=== PATIENT | male | born 1950 | race Two or more races ===

== ENCOUNTER 2025-04-26 08:40 | Inpatient (IN) | payer MEDICARE, MEDICAID ==
[~2025-04-26] VITALS: Ht 198.1 cm; Wt 90.9 kg
--- NOTE | 2025-04-26 08:58 | ED.PDOC ---
Altered Mental Status HPI Comments 74 y.o male with PMHx of ESRD (dialysis M, W,F) and CHF, presents to the ED via EMS s/p witnessed syncopal episode today at home. EMS reports patient woke up with a fever today and as he was getting out of the bed via assistance of family member, had a syncopal lasting 2 minutes. Negative head injuries reported. Rick rodriguez reports feeling weak upon ED arrival and states he is unable to recall syncopal event. He denies any nausea, vomiting, diarrhea, chills, chest pain or SOB. EMS mentions patient is on 2 liters of oxygen at home and missed dialysis today given syncopal episode today. IV fluids in place by EMS as well. Time Seen by MD: 08:50 Reviewed Notes: Nurses Notes, Ocean Biologist Notes, Medications, Allergies Information Source: Patient, Emergency Med Personnel Mode of Arrival: EMS Severity: Moderate Timing: Hours Duration: Since onset Prehospital treatment: IVF, Oxygen Quality: Decreased Alertness Recent: Fever History of: None Associated Signs and Symptoms: None Past Medical History PAST MEDICAL HISTORY: CHF, CKF, ESRD Surgical History (Other): right toe amputation Family History Family History: Reviewed,noncontributory to illness Social History Smoker: Non-Smoker Alcohol: Denies ETOH Use Drugs: Denies Drug Use Lives In: Home Constitutional: reports: fever, malaise, weakness; denies: chills, diaphoresis, fatigue, sweats, others EENTM: denies: blurred vision, double vision, ear bleeding, ear discharge, ear drainage, ear pain, ear ringing, eye pain, eye redness, hearing loss, mouth pain, mouth swelling, nasal discharge, nose bleeding, nose congestion, nose pain, photophobia, tearing, throat pain, throat swelling, voice changes, others Respiratory: denies: cough, hemoptysis, orthopnea, SOB at rest, shortness of breath, SOB with excertion, stridor, wheezing, others Cardiovascular: reports: syncope; denies: chest pain, dizzy spells, diaph oresis, Dyspnea on exertion, edema, irregular heart beat, left arm pain, lightheadedness, palpitations, PND, others Gastrointestinal: denies: abdomen distended, abdominal pain, blood streaked bowels, constipated, diarrhea, dysphagia, difficulty swallowing, hematemesis, melena, nausea, poor appetite, poor fluid intake, rectal bleeding, rectal pain, vomiting, others Genitourinary: denies: burning, dysuria, flank pain, frequency, hematuria, incontinence, penile discharge, penile sore, pain, testicle pain, testicle swelling, urgency, others Neurological: denies: dizziness, fainting, headache, left sided numbness, left sided weakness, numbness, paresthesia, pre-existing deficit, right sided numbnes s, right sided weakness, seizure, speech problems, tingling, tremors, weakness, others Musculoskeletal: denies: back pain, gout, joint pain, joint swelling, muscle pain, muscle stiffness, neck pain, others Integumetry: denies: bruises, change in color, change in hair/nails, dryness, laceration, lesions, lumps, rash, wounds, others Allergic/Immunocompromised: denies: Difficulty Healing, Frequent Infections, Hives, Itching, others Hematologic/Lymphatic: denies: anemia, blood clots, easy bleeding, easy bruising, swollen glands, others Endocrine: denies: excessive hunger, excessive sweating, excessive thirst, excessive urination, flushing, intolerance to cold, intolerance to heat, unexplained weight gain, unexplained weight loss, others Psychiatric: denies: anxiety, bipolar disorder, depression, hopeless, panic disorder, schizophrenia, sleepless, suicidal, others All Other Systems: Reviewed and Negative Physical Exam General Appearance: Moderate Distress, Thin HEENT: Normal ENT Inspection, Pharynx Normal, TMs Normal Neck: Full Range of Motion, Non-Tender, Normal, Normal Inspection Respiratory: Chest Non-Tender, Lungs Clear, No Accessory Muscle Use, No Respiratory Distress, Normal Breath Sounds Cardiovascular: No Edema, No JVD, No Murmur, No Gallop, Normal Peripheral Pulses, Regular Rate/Rhythm Breast Exam: Deferred Gastrointestinal: No Organomegaly, Non Tender, No Pulsatile Mass, Normal Bowel Sounds, Soft Genitalia: Deferred Pelvic: Deferred Rectal: Deferred Extremities: No calf tenderness, Normal capillary refill, Normal inspection, Normal range of motion, Non-tender, No pedal edema Musculoskeletal : Apperance: Normal Neurologic: Alert, college hire II-XII nml as Tested, No Motor Deficits, Normal Affect, Normal Mood, No Sensory Deficits Cerebellar Function: NOT DONE Reflexes: NOT DONE Skin: Wounds (Right great toe amputation) Peripheral Pulses: 3+ Radial (R), 3+ Radial (L) Lymphatic: No Adenopathy EKG EKG : Pulse Rate (adult): 120 Cardiac Rhythm: ST Was a procedure done? Was a procedure done?: No Differential Diagnosis (ALOC) Differential Diagnosis: Dehydration, Hypoxemia, Heart Failure, Renal Failure X-Ray, Labs, Meds, VS Vital Signs Date Time Temp Pulse Resp B/P (MAP) Pulse Ox O2 Delivery O2 Flow Rate FiO2 04/26/25 09:05 120 04/26/25 09:02 120 04/26/25 08:45 99.7 112 19 88/41 96 99.7 Lab Test 04/26/25 13:16 04/26/25 11:55 04/26/25 10:34 04/26/25 09:30 Range/Units Troponin I High Sensitivity 59 *H 45 45 </=54 ng/L Lactic Acid Level 1.2 2.6 *H 0.4-2.0 mmol/L White Blood Count 15.0 H 4.4-10.8 10^3/uL Red Blood Count 3.21 L 4.5-5.90 10^6/uL Hemoglobin 9.1 L 13.5-17.5 g/dL Hematocrit 29.9 L 41.0-53.0 % Mean Corpuscular Volume 93.1 80.0-100.0 fL Mean Corpuscular Hemoglobin 28.5 28.0-32.0 pg Mean Corpuscular Hemoglobin Concent 30.6 L 32.0-36.0 g/dL Red Cell Distribution Width 16.9 H 11.8-14.3 % Platelet Count 270 140-450 10^3/uL Mean Platelet Volume 8.9 6.9-10.8 fL Neutrophils (%) (Auto) 89.5 H 37.0-80.0 % Lymphocytes (%) (Auto) 4.5 L 10.0-50.0 % Monocytes (%) (Auto) 5.1 0.0-12.0 % Eosinophils (%) (Auto) 0.7 0.0-7.0 % Basophils (%) (Auto) 0.2 0.0-2.0 % Neutrophils # (Auto) 13.4 H 1.6-8.6 10 ^3/uL Lymphocytes # (Auto) 0.7 0.4-5.4 10 ^3/uL Monocytes # (Auto) 0.8 0-1.3 10 ^3/uL Eosinophils # (Auto) 0.1 0-0.8 10 ^3/uL Basophils # (Auto) 0 0-0.2 10 ^3/uL Nucleated Red Blood Cells 0.1 % Sodium Level 145 136-145 mmol/L Potassium Level 3.1 L 3.5-5.1 mmol/L Chloride Level 99 98-107 mmol/L Carbon Dioxide Level 30 20-31 mmol/L Anion Gap 16 H 5-15 Blood Urea Nitrogen 40 H 9-23 mg/dL Creatinine 6.69 H 0.700-1.30 mg/dL Glomerular Filtration Rate Calc 8 >90 mL/min BUN/Creatinine Ratio 6.0 L 10.0-20.0 Serum Glucose 111 H 74-106 mg/dL Calcium Level 7.9 L 8.7-10.4 mg/dL Total Bilirubin 0.2 0.2-1.0 mg/dL Aspartate Amino Transferase (AST) 18 13-40 U/L Alanine Aminotransferase (ALT) < 9 7-40 U/L Alkaline Phosphatase 79 46-116 U/L Total Protein 5.4 L 5.7-8.2 g/dL Albumin 3.2 3.2-4.8 g/dL Current Medications Medications (Trade) Dose Ordered Sig/Jace Route Start Time Stop Time Status Last Admin Piperacillin Sod/ Tazobactam Sod 100 ml @ 100 mls/hr ONCE ONCE IV 04/26/25 09:15 04/26/25 10:14 DC 04/26/25 10:54 Vancomycin HCl 250 ml @ 250 mls/hr ONCE ONCE IV 04/26/25 09:30 04/26/25 10:29 DC 04/26/25 10:43 Sodium Chloride 1,000 ml @ 1,000 mls/hr Q1H ONCE IV 04/26/25 09:30 04/26/25 10:29 DC 04/26/25 09:43 Patient alert. Generalized weakness. Has old amputation of the right great toe. Vitals stable. Possibly peripheral vascular disease. He does get dialysis. Nephrology consultation. Have to hold the fluids because of his dialysis. Possible sepsis. Explained to the patient. Continue monitoring. X-Ray, Labs, Meds, VS Comment [address] [address] Ph: [phone] DIAGNOSTIC IMAGING Diagnostic Imaging Report : [id number] Signed PATIENT: ABIEL DARDEN ACCT: [id number] UNIT: [id number] : 1950 LOC: ER ROOM / BED: / AGE / SEX: 74 / M ADM STATUS: REG ER SERVICE 2 ORDERING PHYSICIAN: REMI GUDINO MD PROCEDURE(s): CXRP - CHEST PORTABLE REASON: sob ORDER NUMBER(s): [id number], ACCESSION NUMBER(s): [id number] EXAM: XY CHEST PORTABLE HISTORY: sob COMPARISON: None TECHNIQUE: Portable upright AP view of the chest was performed. FINDINGS: There are interstitial opacities in the left mid to lower lung and right lung base. No pneumothorax or consolidative infiltrates. The heart is enlarged. Left chest AICD is present. The aortic arch is calcific. The central pulmonary arteries may be ectatic. IMPRESSION: 1. Interstitial opacities in the left mid to lower lung and right lung base may be due to scarring, pneumonia, or asymmetric pulmonary edema. Comparison with previous chest imaging would be helpful to make this distinction. 2. Cardiomegaly and atherosclerotic vascular disease. 3. Possible pulmonary arterial hypertension. ATED BY: ABIEL RODRIGUEZ MD DICTATED DATE/TIME: 04/26/25936 SIGNED BY: ABIEL RODRIGUEZ MD SIGNED DATE/TIME: 04/26/25936 CC: Time of 1ST Reevaluation: 08:53 Reevaluation 1ST: Unchanged Patient Education/Counseling: Diagnosis, Treatment, Prognosis Family Education/Counseling: No Family Present SEPSIS Sepsis Screen Physician Orders Chest Portable (04/26/25 08:53) Urinalysis (04/26/25 08:53) Blood Culture (04/26/25 08:53) *Dr. Garcia [facility] (04/26/25 08:53) Vital Signs Date Time Temp Pulse Resp B/P (MAP) Pulse Ox O2 Delivery O2 Flow Rate FiO2 04/26/25 09:05 120 04/26/25 09:02 120 04/26/25 08:45 99.7 112 19 88/41 96 99.7 Laboratory Tests Test 04/26/25 09:30 04/26/25 11:55 Lactic Acid Level 2.6 mmol/L (0.4-2.0) *H 1.2 mmol/L (0.4-2.0) White Blood Count 15.0 10^3/uL (4.4-10.8) H Medications Medications Dose Ordered Sig/Jace Route Start Time Stop Time Status Last Admin Dose Admin Piperacillin Sod/ Tazobactam Sod 100 ml @ 100 mls/hr ONCE ONCE IV 04/26/25 09:15 04/26/25 10:14 DC 04/26/25 10:54 Sodium Chloride 1,000 ml @ 1,000 mls/hr Q1H ONCE IV 04/26/25 09:30 04/26/25 10:29 DC 04/26/25 09:43 Vancomycin HCl 250 ml @ 250 mls/hr ONCE ONCE IV 04/26/25 09:30 04/26/25 10:29 DC 04/26/25 10:43 Departure 1 Departure Time of Disposition: 09:00 Impression: Primary Impression: Chronic kidney disease on chronic dialysis Disposition: ADMITTED INPATIENT Admit to: Med Surg Condition: Guarded Critical Care Note Critical Care Time?: No Stability Stability form required: No Heart Score Heart Score: Heart Score Response (Comments) Value History N/A 0 EKG N/A 0 Age N/A 0 Risk Factors N/A 0 Troponin N/A 0 Total 0 I personally scribed for REMI GUDINO MD ([email or web address]) on 04/26/25 at 08:58. Electronically submitted by Leann Gustafson ([facility]). I personally scribed for REMI GUDINO MD ([email or web address]) on 04/26/25 at 15:44. Electronically submitted by Leann Gustafson ([facility]). REMI GUDINO MD Apr 26, 2025 08:58
[2025-04-26 09:40] VITALS: PULSE 123; RESP 15; O2SAT 97
--- NOTE | 2025-04-26 09:40 | DVH ---
EXAM: XY CHEST PORTABLE HISTORY: sob COMPARISON: None TECHNIQUE: Portable upright AP view of the chest was performed. FINDINGS: There are interstitial opacities in the left mid to lower lung and right lung base. No pneumothorax o r consolidative infiltrates. The heart is enlarged. Left chest AICD is present. The aortic arch is c alcific. The central pulmonary arteries may be ectatic. IMPRESSION: 1. Interstitial opacities in the left mid to lower lung and right lung base may be due to scarring, p neumonia, or asymmetric pulmonary edema. Comparison with previous chest imaging would be helpful to m sergio this distinction. 2. Cardiomegaly and atherosclerotic vascular disease. 3. Possible pulmonary arterial hypertension.
[2025-04-26] MEDS: SODIUM CHLORIDE 0.9% 1,000 ML IV ONE (09:43)
[2025-04-26 09:47] LABS: Hematocrit 29.9 % (41.0-53.0); Hemoglobin 9.1 g/dL (13.5-17.5); Mean Corpuscular Hemoglobin 28.5 pg (28.0-32.0); Mean Corpuscular Volume 93.1 fL (80.0-100.0); Nucleated Red Blood Cells % 0.1 %
[2025-04-26 10:05] LABS: Alkaline Phosphatase 79 U/L (46-116); Anion Gap 16 (5-15); BUN/Creatinine Ratio 6.0 (10.0-20.0); Carbon Dioxide 30 mmol/L (20-31); Chloride 99 mmol/L (98-107)
[2025-04-26 10:17] LABS: Alanine Aminotransferase < 9 U/L (7-40); Albumin 3.2 g/dL (3.2-4.8); Bilirubin, Total 0.2 mg/dL (0.2-1.0); Blood Urea Nitrogen 40 mg/dL (9-23); Calcium 7.9 mg/dL (8.7-10.4); Glucose 111 mg/dL (74-106); Potassium 3.1 mmol/L (3.5-5.1); Sodium 145 mmol/L (136-145); Total Protein 5.4 g/dL (5.7-8.2)
[2025-04-26 10:22] LABS: Lactic Acid w/Reflex 2.6 mmol/L (0.4-2.0)
[2025-04-26] MEDS: VANCOMYCIN 1GM/250ML KIT 250 ML IV ONE ×2 (10:43→21:30)
--- NOTE | 2025-04-26 10:43 | ECG ---
[facility] Test Date: 2025-04-26 Test Time: 09:02:31 Pat Name: ABIEL DARDEN Department: [facility] ED Room: [address] [place] [address] Gender: M Rehabilitation Therapist: beverley : 1950 Requested By: REMI GUDINO Order Number: [id number] Reading MD: Garland Interiano Measurements Intervals Tutor Key Rate: 120 P: -21 MI: 148 QRS: -15 QRSD: 109 T: -1 QT: 344 QTc: 486 Interpretive Statements Sinus tachycardia Ventricular premature complex Inferior infarct, old Electronically Signed On 04-27-2025 18:48:02 PDT by Garland Interiano Please click the below link to view image of tracing.
[2025-04-26] MEDS: PIPERACILLIN-TAZOB 3.375GM 100 ML IV ONE (10:54)
[2025-04-26 13:05] VITALS: PULSE 93; O2SAT 98
--- NOTE | 2025-04-26 16:38 | DVHHPRES ---
History of Present Illness Resident Creating Document: ALEKSEY BONE RESIDENT History of Present Illness Patient is a 74-year-old male with a past medical history of COPD s/p bilateral lung transplant, ESRD on dialysis Tuesday, heart failure with a reduced ejection fraction, stroke with a vascular dementia, peripheral artery disease, osteomyelitis, basal cell carcinoma on the face status post resection, hypothyroidism presented to the ED with a chief generalized weakness. Patient reported that yesterday night he started to feel shivers, had fever up to 101 degree F and in the morning was not able to get out of the bed following which was brought to the ER for further evaluation. Patient underwent amputation of the right 1st toe due to osteomyelitis at [facility] about a week ago and earlier this week he underwent a coronary angiogram on the left lower extremity as he also has gangrene of the left 1st great toe. Patient reported to feeling increased shortness of breath while he was on his home oxygen of 2 L/min. On arrival to the ER patient was hypotensive, had elevated lactic acid, with the increased white count and left shift following which sepsis protocol was initiated. Past medical history: As per HPI Past surgical history: Bilateral lung transplant, peripheral angiogram, right upper extremity AV fistula, right 1st toe amputation Social history: Patient had history of smoking previously, currently denies smoking, alcohol, drug use Home medications: Levothyroxine 175 mcg, sertraline 100 mg, sevelamer 2.4 g t.i.d. WM, Bactrim single strength Tuesday, trazodone 50 HS, tacrolimus 1 mg b.i.d., prednisolone 10 mg daily, Milrinone 15 mg on the day of dialysis MWF, calcitriol 1 mcg daily, aspirin 80 mg daily, atorvastatin 40 mg daily, mirtazapine 7.5 mg HS, Creon 31263 units Review of Systems Review of Systems Patient seen and examined with the bedside Reports to be feeling weak and has intermittent chills, denies any cough, chest pain, phlegm Patient reports pain in his right foot as well as the left foot No abdominal pain, constipation or diarrhea Denies any shortness of breath Allergies: Coded Allergies: Hydromorphone (Verified Adverse Reaction, Unknown, 04/26/25) Exam Vital Signs Vital Signs Date Time Temp Pulse Resp B/P (MAP) Pulse Ox O2 Delivery O2 Flow Rate FiO2 04/26/25 13:00 93 21 89/44 (59) 98 04/26/25 12:00 98.8 98.8 04/26/25 09:40 Nasal Cannula* 2 28 Exam Gen - mild conjunctival pallor, no icterus, no cyanosis, no extremity edema . Skin - Patients skin is warm and dry. HEENT - normocephalic, atraumatic, moist mucous membranes. Neck - full ROM, no LAD, no JVD Pulmonary - B/L equal breath sounds, minimal crackles on the left lower, no wheezing, no stridor. cardiovascular - regular S1,S2 heard, no added sounds, no murmurs heard. peripheral pulses normal radial 2+, diminished pedal pulses bilaterally GI - soft, nontender abdomen. no hepatospleenomegaly. Bowel sounds normoactive Neurological - Patient is A/O X 3 . Bilateral upper extremity strength 5/5, bilateral lower extremity strength 5/5, no facial droop, normal speech, no tremor, no sensory deficiets. Labs/Xrays Labs Test 04/26/25 13:16 04/26/25 11:55 04/26/25 09:30 Range/Units Troponin I High Sensitivity 59 *H </=54 ng/L Lactic Acid Level 1.2 0.4-2.0 mmol/L White Blood Count 15.0 H 4.4-10.8 10^3/uL Red Blood Count 3.21 L 4.5-5.90 10^6/uL Hemoglobin 9.1 L 13.5-17.5 g/dL Hematocrit 29.9 L 41.0-53.0 % Mean Corpuscular Volume 93.1 80.0-100.0 fL Mean Corpuscular Hemoglobin 28.5 28.0-32.0 pg Mean Corpuscular Hemoglobin Concent 30.6 L 32.0-36.0 g/dL Red Cell Distribution Width 16.9 H 11.8-14.3 % Platelet Count 270 140-450 10^3/uL Mean Platelet Volume 8.9 6.9-10.8 fL Neutrophils (%) (Auto) 89.5 H 37.0-80.0 % Lymphocytes (%) (Auto) 4.5 L 10.0-50.0 % Monocytes (%) (Auto) 5.1 0.0-12.0 % Eosinophils (%) (Auto) 0.7 0.0-7.0 % Basophils (%) (Auto) 0.2 0.0-2.0 % Neutrophils # (Auto) 13.4 H 1.6-8.6 10 ^3/uL Lymphocytes # (Auto) 0.7 0.4-5.4 10 ^3/uL Monocytes # (Auto) 0.8 0-1.3 10 ^3/uL Eosinophils # (Auto) 0.1 0-0.8 10 ^3/uL Basophils # (Auto) 0 0-0.2 10 ^3/uL Nucleated Red Blood Cells 0.1 % Sodium Level 145 136-145 mmol/L Potassium Level 3.1 L 3.5-5.1 mmol/L Chloride Level 99 98-107 mmol/L Carbon Dioxide Level 30 20-31 mmol/L Anion Gap 16 H 5-15 Blood Urea Nitrogen 40 H 9-23 mg/dL Creatinine 6.69 H 0.700-1.30 mg/dL Glomerular Filtration Rate Calc 8 >90 mL/min BUN/Creatinine Ratio 6.0 L 10.0-20.0 Serum Glucose 111 H 74-106 mg/dL Calcium Level 7.9 L 8.7-10.4 mg/dL Total Bilirubin 0.2 0.2-1.0 mg/dL Aspartate Amino Transferase (AST) 18 13-40 U/L Alanine Aminotransferase (ALT) < 9 7-40 U/L Alkaline Phosphatase 79 46-116 U/L Total Protein 5.4 L 5.7-8.2 g/dL Albumin 3.2 3.2-4.8 g/dL SEPSIS Sepsis Screen Date sepsis recognized/suspect: Apr 26, 2025 Time Sepsis recognized/suspect: 939 Recent Procedure: Yes On Antibiotic Therapy: Yes Respiratory Rate >20: No Heart Rate >90: Yes Temp<36 C (96.8 F) or >38.3 C: No SBP <90 or MAP <65 mmHG: Yes New Acute Mental Status Change: No Is the patient on CPAP, BIPAP,: No Physician Orders Chest Portable (04/26/25 08:53) Urinalysis (04/26/25 08:53) Blood Culture (04/26/25 08:53) *Dr. Garcia [facility] (04/26/25 08:53) Vital Signs Date Time Temp Pulse Resp B/P (MAP) Pulse Ox O2 Delivery O2 Flow Rate FiO2 04/26/25 13:00 93 21 89/44 (59) 98 04/26/25 12:30 97 22 90/46 (61) 99 04/26/25 12:00 98.8 100 19 89/44 (59) 98 98.8 04/26/25 11:30 100 20 95/46 (62) 99 04/26/25 11:00 105 21 96/48 (64) 99 04/26/25 10:30 106 22 94/44 (61) 99 04/26/25 10:00 116 15 97/47 (64) 97 04/26/25 09:40 123 15 97 Nasal Cannula* 2 28 04/26/25 09:40 98.4 123 15 90/45 (60) 97 98.4 04/26/25 09:05 120 04/26/25 09:02 120 04/26/25 08:45 99.7 112 19 88/41 96 99.7 Laboratory Tests Test 04/26/25 09:30 04/26/25 11:55 Lactic Acid Level 2.6 mmol/L (0.4-2.0) *H 1.2 mmol/L (0.4-2.0) White Blood Count 15.0 10^3/uL (4.4-10.8) H Medications Medications Dose Ordered Sig/Jace Route Start Time Stop Time Status Last Admin Dose Admin Piperacillin Sod/ Tazobactam Sod 100 ml @ 100 mls/hr ONCE ONCE IV 04/26/25 09:15 04/26/25 10:14 DC 04/26/25 10:54 100 MLS/HR Sodium Chloride 1,000 ml @ 1,000 mls/hr Q1H ONCE IV 04/26/25 09:30 04/26/25 10:29 DC 04/26/25 09:43 1,000 MLS/HR Vancomycin HCl 250 ml @ 250 mls/hr ONCE ONCE IV 04/26/25 09:30 04/26/25 10:29 DC 04/26/25 10:43 250 MLS/HR Assessment/Plan Assessment/Plan Acute on chronic hypoxic respiratory failure S/p bilateral lung transplant in 2018 Pulmonary vascular congestion Possible pneumonia likely due to Gram +/- bacteria Mild bilateral pulmonary edema - on oxygen via nasal cannula - IV antibiotics vancomycin and ceftriaxone - tacrolimus and prednisolone - Bactrim single strength Tuesday - COVID influenza and MRSA screen pending Acute on chronic heart failure with reduced ejection fraction Status post biventricular AICD Peripheral artery disease s/p recent peripheral angiogram - ECG showed sinus tachycardia, ventricular premature complex, no acute ST segment or T-wave changes - on warfarin ( scheduled dosed by Coumadin clinic at [facility]) - aspirin and atorvastatin Sepsis likely due to right foot osteomyelitis - patient recently had right 1st toe amputation at [facility] about a week ago - wound draining pus - right and left foot CT - podiatry consulted - wound cultures pending - IV antibiotics vancomycin and ceftriaxone - blood cultures pending - judicious use of IV fluids since the patient is end-stage renal disease on dialysis and congestive heart failure End-stage renal disease on dialysis MWF - consulted nephrology - monitor electrolytes - on sevelamer - calcitriol History of hypothyroidism - continued on levothyroxine 175 mcg daily - TSH is low, free T4 and total T3 pending - may need decrease in dosage History of mood disorder - continued on sertraline PUD prophylaxis: Protonix DVT prophylaxis: Heparin Goals of care discussed with the patient, daughter and at bedside for over 27 minutes. Full code Time spent: 47 minutes Plan discussed with Dr. Pereira Plan discussed with: Patient, Spouse, Other (RN) Date of Service: Apr 26, 2025 Billing Provider: FRANCESCA PEREIRA MD Common Visit Codes: 02152-[id number] INP/OBS CARE (HIGH) Secondary Visit Codes: [id number] CARE PLAN 30 MINUTES ALEKSEY BONE RESIDENT Apr 26, 2025 16:38 FRANCESCA PEREIRA MD Apr 29, 2025 02:20
[2025-04-26] MEDS ORDERED: NITROGLYCERIN 0.4 MG SL TAB SL PRN (16:45)
[2025-04-26] MEDS ORDERED: MORPHINE SULFATE INJ 2 MG/ml SYRG IV PRN (16:45)
[2025-04-26] MEDS ORDERED: VANCOMYCIN PER PHARMACY 0 MG IV SCH (16:45)
[2025-04-26] MEDS ORDERED: ONDANSETRON HCL 4 MG/2 ML VIAL IV PRN (16:45)
[2025-04-26 18:31] LABS: INR 2.68 (0.9-1.15); Partial Thromboplastin Time 48.7 SEC (24.5-34.5); Prothrombin Time 25.8 sec (9.3-11.8)
[2025-04-26] MEDS: SEVELAMER 800 MG TAB PO SCH (19:11)
[2025-04-26] MEDS: POTASSIUM CHL 20 Meq TABLET PO ONE (19:11)
[2025-04-26] MEDS: PANTOPRAZOLE 40 MG/10 ML VIAL INJ IV ONE (19:12)
[2025-04-26] MEDS: SODIUM CHLORIDE 0.9% 500 ML IV ONE ×2 (19:12→21:20)
[2025-04-26] MEDS: SULFAMETHOX W/TRIMETH(800/160MG) DS TAB PO ONE (19:17)
--- NOTE | 2025-04-26 20:54 | DVH ---
EXAMINATION: CT CT R FOOT WO CONTRAST INDICATION: s/p 1st toe amputation, septic COMPARISON: CT CT L FOOT WO CONTRAST on DOS: 04/26/25 TECHNIQUE: CT of the rightleft foot was performed without contrast. Volume transverse images were obt ained reconstructed in multiple planes using bone and soft tissue algorithms. Radiation dose: CTDIvol 25.04 mGy, DLP 959.0 (mGy-cm) FINDINGS: Bones are diffusely demineralized. Prior amputation of the 1st toe. Erosive changes at the tip of the 1st metatarsal distally. Suspected few additional erosions at the p lantar base of the 2nd metatarsal. No fracture or malalignment. Diffuse vascular calcifications. IMPRESSION: Erosive changes at the tip of the 1st metatarsal with diffuse suspected erosions at the 2nd metatars al head concerning for osteomyelitis. MRI would more definitively assess.
--- NOTE | 2025-04-26 20:58 | DVH ---
EXAMINATION: CT CT L FOOT WO CONTRAST INDICATION: left 1st toe gangrene COMPARISON: CT CT R FOOT WO CONTRAST on DOS: 04/26/25 TECHNIQUE: CT of the rightleft foot was performed without contrast. Volume transverse images were obt ained reconstructed in multiple planes using bone and soft tissue algorithms. Radiation dose: CTDIvol 25.01 mGy, DLP 876.64 mGy-cm FINDINGS: No convincing erosive changes. No soft tissue gas. Generalized soft tissue swelling of the 1st digit. No obvious focal fluid collections. Diffuse vascular calcifications. IMPRESSION: No convincing erosive changes. No soft tissue gas. Generalized soft tissue swelling of the 1st digit. No obvious focal fluid collections. If there is sufficient concern for osteomyelitis or abscess suggest more definitive assessment with M PERLITA.
[2025-04-27] MEDS: TACROLIMUS 1 MG CAP PO SCH (03:00)
[2025-04-27] MEDS: ATORVASTATIN 20 MG TAB PO SCH (03:00)
[2025-04-27] MEDS: MIRTAZAPINE 30 MG TAB PO SCH (03:30)
[2025-04-27 04:23] LABS: Hematocrit 25.6 % (41.0-53.0); Hemoglobin 8.0 g/dL (13.5-17.5); Mean Corpuscular Hemoglobin 28.9 pg (28.0-32.0); Mean Corpuscular Volume 92.9 fL (80.0-100.0); Nucleated Red Blood Cells % 0.1 %
[2025-04-27 04:31] LABS: Chloride 103 mmol/L (98-107); Sodium 141 mmol/L (136-145)
[2025-04-27 04:32] LABS: Anion Gap 14 (5-15); Carbon Dioxide 24 mmol/L (20-31)
[2025-04-27 04:35] LABS: Calcium 8.1 mg/dL (8.7-10.4); Potassium 5.2 mmol/L (3.5-5.1)
[2025-04-27 04:37] LABS: BUN/Creatinine Ratio 5.5 (10.0-20.0); Glucose 81 mg/dL (74-106)
[2025-04-27 04:38] LABS: Blood Urea Nitrogen 40 mg/dL (9-23)
[2025-04-27] MEDS: HYDROcodone-ACET 10/325MG TAB PO ONE (04:42)
[2025-04-27 04:44] LABS: Free T4 (Free Thyroxine) 0.9 ng/dL (0.89-1.76)
[2025-04-27] MEDS: LEVOTHYROXINE SODIUM 50 MCG TAB PO SCH (06:00)
[2025-04-27] MEDS ORDERED: VANCOMYCIN PER PHARMACY 0 MG IV SCH (07:30)
[2025-04-27 08:00] VITALS: BP 147/57; PULSE 97; RESP 24; TEMP 97.7; O2SAT 97
[2025-04-27] MEDS: SODIUM ZIRCONIUM CYCL 10 GM PAK PO ONE (09:12)
[2025-04-27] MEDS ORDERED: HYDROcodone-ACET 5/325MG TAB PO PRN (09:15)
[2025-04-27] MEDS ORDERED: PANTOPRAZOLE 40 MG/10 ML VIAL INJ IV SCH (10:00)
[2025-04-27] MEDS ORDERED: SERTRALINE HCL 50 MG TAB PO SCH (10:00)
[2025-04-27] MEDS ORDERED: CALCITRIOL 0.25 MCG CAP PO SCH (10:00)
[2025-04-27 10:40] LABS: COVID19 ANTIGEN SOFIA FIA NEGATIVE (NEGATIVE)
--- NOTE | 2025-04-27 13:06 | DVHDSRES ---
Discharge Summary Date of Admission Resident Creating Document: ION RAMIREZ RESIDENT Apr 26, 2025 at 16:34 Date of Discharge: Apr 27, 2025 Admitting Diagnosis Pneumonia Labs/Diagnostic Data: Laboratory Results Test 04/27/25 03:55 04/26/25 17:37 04/26/25 13:16 04/26/25 11:55 White Blood Count 18.6 10^3/uL (4.4-10.8) Red Blood Count 2.75 10^6/uL (4.5-5.90) Hemoglobin 8.0 g/dL (13.5-17.5) Hematocrit 25.6 % (41.0-53.0) Mean Corpuscular Volume 92.9 fL (80.0-100.0) Mean Corpuscular Hemoglobin 28.9 pg (28.0-32.0) Mean Corpuscular Hemoglobin Concent 31.1 g/dL (32.0-36.0) Red Cell Distribution Width 17.3 % (11.8-14.3) Platelet Count 245 10^3/uL (140-450) Mean Platelet Volume 8.7 fL (6.9-10.8) Neutrophils (%) (Auto) 86.1 % (37.0-80.0) Lymphocytes (%) (Auto) 8.3 % (10.0-50.0) Monocytes (%) (Auto) 4.1 % (0.0-12.0) Eosinophils (%) (Auto) 0.6 % (0.0-7.0) Basophils (%) (Auto) 0.9 % (0.0-2.0) Neutrophils # (Auto) 16.0 10 ^3/uL (1.6-8.6) Lymphocytes # (Auto) 1.5 10 ^3/uL (0.4-5.4) Monocytes # (Auto) 0.8 10 ^3/uL (0-1.3) Eosinophils # (Auto) 0.1 10 ^3/uL (0-0.8) Basophils # (Auto) 0.2 10 ^3/uL (0-0.2) Nucleated Red Blood Cells 0.1 % Erythrocyte Sedimentation Rate 79 mm/hr (0-20) Sodium Level 141 mmol/L (136-145) Potassium Level 5.2 mmol/L (3.5-5.1) Chloride Level 103 mmol/L (98-107) Carbon Dioxide Level 24 mmol/L (20-31) Anion Gap 14 (5-15) Blood Urea Nitrogen 40 mg/dL (9-23) Creatinine 7.27 mg/dL (0.700-1.30) Glomerular Filtration Rate Calc 7 mL/min (>90) BUN/Creatinine Ratio 5.5 (10.0-20.0) Serum Glucose 81 mg/dL (74-106) Hemoglobin A1c 5.4 % A1C (<5.7) Calcium Level 8.1 mg/dL (8.7-10.4) C-Reactive Protein High Sensitivity > 20.00 mg/dL (<1.0) Free Thyroxine (T4) Calculated 0.90 ng/dL (0.89-1.76) Total Triiodothyronine (TT3) 0.33 ng/mL (0.60-1.81) Prothrombin Time 25.8 sec (9.3-11.8) Prothrombin Time INR 2.68 (0.9-1.15) Activated Partial Thromboplast Time 48.7 SEC (24.5-34.5) Troponin I High Sensitivity 59 ng/L (</=54) Thyroid Stimulating Hormone (TSH) 0.15 uIU/mL (0.55-4.78) Lactic Acid Level 1.2 mmol/L (0.4-2.0) Test 04/26/25 09:30 04/26/25 08:39 Total Bilirubin 0.2 mg/dL (0.2-1.0) Aspartate Amino Transferase (AST) 18 U/L (13-40) Alanine Aminotransferase (ALT) < 9 U/L (7-40) Alkaline Phosphatase 79 U/L (46-116) Total Protein 5.4 g/dL (5.7-8.2) Albumin 3.2 g/dL (3.2-4.8) Influenza Type A Antigen Negative (Negative) Influenza Type B Antigen Negative (Negative) SARS-CoV-2 Antigen (Rapid) Negative (NEGATIVE) Other Laboratory Tests 04/27/25 03:55 Brief Hx & Hospital Course: This is a 74-year-old male with a past medical history of COPD s/p bilateral lung transplant, ESRD on dialysis Tuesday, heart failure with a reduced ejection fraction, stroke with a vascular dementia, peripheral artery disease, osteomyelitis, basal cell carcinoma on the face status post resection, hypothyroidism presented to the ED with a chief generalized weakness. On arrival to the ED, patient reported that the previous night he started to feel shivers, had fever up to 101 degree F and in the morning was not able to get out of the bed following which was brought to the ER for further evaluation. 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 Patient reported to feeling increased shortness of breath while he was on his home oxygen of 2 L/min. On arrival to the ER patient was hypotensive, had elevated lactic acid, with the increased white count and left shift following which sepsis protocol was initiated. Past medical history: As per HPI Past surgical history: Bilateral lung transplant, peripheral angiogram, right upper extremity AV fistula, right 1st toe amputation Social history: Patient had history of smoking previously, currently denies smoking, alcohol, drug use Home medications: Levothyroxine 175 mcg, sertraline 100 mg, sevelamer 2.4 g t.i.d. WM, Bactrim single strength Tuesday, trazodone 50 HS, tacrolimus 1 mg b.i.d., prednisolone 10 mg daily, Milrinone 15 mg on the day of dialysis MWF, calcitriol 1 mcg daily, aspirin 80 mg daily, atorvastatin 40 mg daily, mirtazapine 7.5 mg HS, Creon 53078 units Patient was continued on broad-spectrum antibiotics vancomycin and Rocephin, he was given sepsis protocol IV fluids, a CT of the feet revealed osteomyelitis, ESR and CRP were elevated. Podiatry was consulted. Nephrology was also consulted due to ESRD on dialysis, patient did missed hemodialysis yesterday. Wound consult was order and wound culture were also pending. Marte cultures were ordered. A currently chart patient's vital signs were still tachypneic, mildly hypertensive, WBC count was still elevated, lactic acid was now within normal limits. Patient left AMA excellence coach, see the patient. He was explained comprehensively about the risk of leaving against medical advice, he was taken by his family members. Plan discussed with Dr. Rdz Consults/Reason for consult Nephrology was consulted to ESRD on hemodialysis Podiatry was consulted due to osteomyelitis Operations or Procedures [place] [id number] Ph: [phone] DIAGNOSTIC IMAGING Diagnostic Imaging Report : [id number] Signed PATIENT: ABIEL DARDEN ACCT: [id number] UNIT: [id number] : 1950 LOC: ER ROOM / BED: / AGE / SEX: 74 / M ADM STATUS: REG ER SERVICE [id number] ORDERING PHYSICIAN: REMI GUDINO MD PROCEDURE(s): CXRP - CHEST PORTABLE REASON: sob ORDER NUMBER(s): [id number], ACCESSION NUMBER(s): [id number] EXAM: XY CHEST PORTABLE HISTORY: sob COMPARISON: None TECHNIQUE: Portable upright AP view of the chest was performed. FINDINGS: There are interstitial opacities in the left mid to lower lung and right lung base. No pneumothorax or consolidative infiltrates. The heart is enlarged. Left chest AICD is present. The aortic arch is calcific. The central pulmonary arteries may be ectatic. IMPRESSION: 1. Interstitial opacities in the left mid to lower lung and right lung base may be due to scarring, pneumonia, or asymmetric pulmonary edema. Comparison with previous chest imaging would be helpful to make this distinction. 2. Cardiomegaly and atherosclerotic vascular disease. 3. Possible pulmonary arterial hypertension. ATED BY: ABIEL RODRIGUEZ MD DICTATED DATE/TIME: 04/26/25936 SIGNED BY: ABIEL RODRIGUEZ MD SIGNED DATE/TIME: 04/26/25936 CC: [place] [address] Ph: [phone] DIAGNOSTIC IMAGING Diagnostic Imaging Report : [id number] Signed PATIENT: ABIEL DARDEN ACCT: [id number] UNIT: [id number] : 1950 LOC: OVERFLOW ROOM / BED: 1018-ERT / A AGE / SEX: 74 / M ADM STATUS: ADM IN SERVICE 1634 ORDERING PHYSICIAN: ALEKSEY BONE PROCEDURE(s): RFTCT - CT R FOOT WO CONTRAST REASON: s/p 1st toe amputation, septic ORDER NUMBER(s): [id number], ACCESSION NUMBER(s): [id number] EXAMINATION: CT CT R FOOT WO CONTRAST INDICATION: s/p 1st toe amputation, septic COMPARISON: CT CT L FOOT WO CONTRAST on DOS: 04/26/25 TECHNIQUE: CT of the rightleft foot was performed without contrast. Volume transverse images were obtained reconstructed in multiple planes using bone and soft tissue algorithms. Radiation dose: CTDIvol 25.04 mGy, DLP 959.0 (mGy-cm) FINDINGS: Bones are diffusely demineralized. Prior amputation of the 1st toe. Erosive changes at the tip of the 1st metatarsal distally. Suspected few additional erosions at the plantar base of the 2nd metatarsal. No fracture or malalignment. Diffuse vascular calcifications. IMPRESSION: Erosive changes at the tip of the 1st metatarsal with diffuse suspected erosions at the 2nd metatarsal head concerning for osteomyelitis. MRI would more definitively assess. ATED BY: NOBLE PEREZ MD DICTATED DATE/TIME: 04/26/252051 SIGNED BY: NOBEL PEREZ MD SIGNED DATE/TIME: 04/26/252051 CC: [place] [address] Ph: [phone] DIAGNOSTIC IMAGING Diagnostic Imaging Report : [id number] Signed PATIENT: ABIEL DARDEN ACCT: [id number] UNIT: [id number] : 1950 LOC: OVERFLOW ROOM / BED: 1018-ERT / A AGE / SEX: 74 / M ADM STATUS: ADM IN SERVICE 1634 ORDERING PHYSICIAN: ALEKSEY BONE RESIDENT PROCEDURE(s): LFTCT - CT L FOOT WO CONTRAST REASON: left 1st toe gangrene ORDER NUMBER(s): [id number], ACCESSION NUMBER(s): [id number] EXAMINATION: CT CT L FOOT WO CONTRAST INDICATION: left 1st toe gangrene COMPARISON: CT CT R FOOT WO CONTRAST on DOS: 04/26/25 TECHNIQUE: CT of the rightleft foot was performed without contrast. Volume transverse images were obtained reconstructed in multiple planes using bone and soft tissue algorithms. Radiation dose: CTDIvol 25.01 mGy, DLP 876.64 mGy-cm FINDINGS: No convincing erosive changes. No soft tissue gas. Generalized soft tissue swelling of the 1st digit. No obvious focal fluid collections. Diffuse vascular calcifications. IMPRESSION: No convincing erosive changes. No soft tissue gas. Generalized soft tissue swelling of the 1st digit. No obvious focal fluid collections. If there is sufficient concern for osteomyelitis or abscess suggest more definitive assessment with MRI. ATED BY: NOBLE PEREZ MD DICTATED DATE/TIME: 04/26/252054 SIGNED BY: NOBLE PEREZ MD SIGNED DATE/TIME: 04/26/252054 CC: Condition at Discharge: Poor Final Diagnosis/Problems List Acute on chronic hypoxic respiratory failure S/p bilateral lung transplant in 2018 Pulmonary vascular congestion Possible pneumonia likely due to Gram +/- bacteria Mild bilateral pulmonary edema Acute on chronic heart failure with reduced ejection fraction Status post biventricular AICD Peripheral artery disease s/p recent peripheral angiogram Sepsis likely due to right foot osteomyelitis End-stage renal disease on dialysis MWF History of mood disorder Discharge Disposition: AMA Discharge Statement: "Patient was advised to return to the ER or call 911 if any headaches, dizziness, shortness of breath, chest pain, abdominal pain, bleeding, fevers, or worsening of medical condition. Patient was counseled about treatment plan, medications, possible side effects, patientverbalized understanding. All questions were answered to the best of my ability. This discharge took greater then 30 minutes in planning, reviewing documentation, counseling the patient, and discussing with other team members." ASSESSMENT ASSESSMENT Assessment Date of Service: Apr 27, 2025 Billing Provider: FRANCESCA RDZ MD Common Visit Codes: 59963-FBP/OBS DISCH DAY >30min ION RAMIREZ RESIDENT Apr 27, 2025 13:06 FRANCESCA RDZ MD Apr 29, 2025 02:21
[2025-04-27] MEDS ORDERED: SODIUM CHL 0.9% 1000 ML BAG XX ONE (13:30)
[2025-04-27] MEDS ORDERED: EPOETIN ALFA-EPBX 10,000 UNIT/1ML VIAL SC ONE (21:00)
[2025-04-29] MEDS ORDERED: SULFAMETHOX W/TRIMETH(800/160MG) DS TAB PO SCH (10:00)
== END 2025-04-27 10:15 | disposition left against medical advice (07) | DRG 871 ==
LOC: EDBD 08:40 → ER 08:40 → OVERFLOW 16:34
PROVIDERS: ADMIT Emergency Medicine; ATTEND Emergency Medicine
DX: A41.9 Sepsis, unspecified organism (principal); I50.23 Acute on chronic systolic (congestive) heart failure; N18.6 End stage renal disease; J15.69 Pneumonia due to other Gram-negative bacteria; J96.21 Acute and chronic respiratory failure with hypoxia; J15.9 Unspecified bacterial pneumonia; M86.8X7 Other osteomyelitis, ankle and foot; J44.0 Chronic obstructive pulmonary disease with (acute) lower respiratory infection; Z94.2 Lung transplant status; Z20.822 Contact with and (suspected) exposure to COVID-19; Z53.29 Procedure and treatment not carried out because of patient's decision for other reasons; E03.9 Hypothyroidism, unspecified; I73.9 Peripheral vascular disease, unspecified; F01.50 Vascular dementia, unspecified severity, without behavioral disturbance, psychotic disturbance, mood disturbance, and anxiety; F39 Unspecified mood [affective] disorder; Z99.2 Dependence on renal dialysis; Z95.810 Presence of automatic (implantable) cardiac defibrillator; Z86.73 Personal history of transient ischemic attack (TIA), and cerebral infarction without residual deficits
CPT/HCPCS: 36415; 71045; 73700; 80048; 80053; 83036; 83605; 84439; 84443; 84480; 84484; 85025; 85610; 85652; 85730; 86141; 87040; 87426; 87804; 93005; 96361; 96365; 96368; G0378; J2405; J2470; J2543; J7507